=== PATIENT | female | born 1960 | race African-American/Black ===

== ENCOUNTER 2017-07-16 14:13 | Emergency (ER) | payer OTHER ==
[~2017-07-16] VITALS: Ht 172.7 cm; Wt 78.0 kg
[2017-07-16] MEDS ORDERED: NAPROSYN500 MG PO (14:24)
[2017-07-16] MEDS ORDERED: MEDROL DOSEPAK4 MG PO (14:24)
[2017-07-16 15:43] VITALS: BP 181/88
== END 2017-07-16 15:44 | disposition home or self-care (01) ==
LOC: RME 14:13 → EME 14:13 → RME 15:44
DX: M54.42 Lumbago with sciatica, left side (principal); M25.78 Osteophyte, vertebrae
CPT/HCPCS: 72100; 99281; 99283